=== PATIENT | female | born 1935 | race Caucasian/White ===

== ENCOUNTER 2017-06-07 03:42 | Inpatient (IN) | payer OTHER, MEDICARE ==
[~2017-06-07] VITALS: Ht 162.6 cm; Wt 63.0 kg
[~2017-06-07 03:42] MED LIST: ASPIRIN EC81 M1 PO; DUREZOL5 ML OS; LEVOTHYROXINE100 MC1 PO; NORVASC10 M1 PO; OMEPRAZOLE40 M1 PO; PRAVACHOL40 M1 PO; SIMBRINZA 1%-0.28 ML; TRAVATAN Z5 ML OPH; VESICARE10 MG PO
--- NOTE | 2017-06-07 10:19 | Admission Core Measures ---
Acute Coronary Syndrome (CM) ACS Core Measures Acute Coronary Syndrome Diagnosis No Congestive Heart Failure (NEW) CHF Core Measures Congestive Heart Failure Diagnosis No Cerebrovascular Accident (NEW) CVA Core Measures CVA/TIA Diagnosis No Venous Thromboembolism VTE Core Sonia (View Protocol) VTE Risk Factors Surgery No Mechanical VTE Prophylaxis d/t N/A MechProphylax Ordered No VTE Pharm Prophylaxis d/t NA PharmProphylax ordered Problem List As ranked by this Provider includes Assessment & Plan 1. Unilateral primary osteoarthritis, right knee HOME MEDS Home Med List Amlodipine Besylate (Norvasc) 10 MG TABLET 1 TAB PO DAILY HTN (Reported) Aspirin (Ecotrin*) 81 MG TABLET.DR 1 TAB PO DAILY CARDIAC (Reported) Difluprednate (Durezol) 0.05 % DROPS 1 GTT OS BID GLAUCOMA (Reported) Levothyroxine Sodium 100 MCG TABLET 1 TAB PO DAILY REPLACEMENT (Reported) Omeprazole 40 MG CAPSULE.DR 1 CAP PO DAILY REFLUX (Reported) Pravastatin Sodium (Pravachol) 40 MG TABLET 1 TAB PO DAILY CHOLESTEROL ( Reported) Solifenacin Succinate (Vesicare) 10 MG TABLET 1 TAB PO DAILY BLADDER ( Reported) Travoprost (Travatan Z) 0.004 % DROPS 1 GTT OPH QPM GLAUCOMA (Reported)
[2017-06-07] MEDS ORDERED: MIRALAX17 G1 PO (10:20)
[2017-06-07] MEDS ORDERED: DILAUDID2 M1 PO (10:20)
[2017-06-07] MEDS ORDERED: COLACE100 M1 PO (10:20)
[2017-06-07] MEDS ORDERED: ASPIRIN EC325 M2 PO (10:20)
--- NOTE | 2017-06-07 10:22 | Patient Discharge Instructions ---
Discharge Instructions General Discharge Information You were seen/treated for: Right knee pain related to unilateral primary osteoarthritis You had these procedures: Right total knee replacement Watch for these problems: Increasing pain despite the use of pain medication Increasing redness, warmth or swelling Drainage of any type from incision Inability to bear weight on operative leg Persistent nausea and vomiting Fever greater than 101.5 degrees Do not soak the wound: Yes No bath, but you may shower: Yes Other wound care: Please keep wound clean and dry. No ointments or lotions of any type on or near incision at any time. No exceptions. Your dressing will be changed by your nurse on the second day after your surgery. Daily dry dressing changes are recommended each day thereafter. Do not soak your wound in a bath at any time until otherwise indicated by your surgeon. You may shower, please dry wound immediately after shower with a clean towel. Special Instructions: Aspirin: You are taking this medication to help prevent blood clot formation. Please take with food to protect your stomach lining. Please take as directed. Constipation: Pain medication can cause constipation. Dr. Harper has recommended that you take Colace and miralax each day. You may discontinue this medication if you develop loose stool or diarrhea. If you wish to continue this medication, it is available over the counter. If you are unable to move your bowels after several days, if you are unable to pass gas and are developing bloating, nausea, or vomiting as a result, please contact your doctor. Diet Continue normal diet: Yes Recommended Diet: Regular Activity Full Activity/No Limits: No Activity Self Limited: Yes Pounds, do NOT lift more than: 10 Acute Coronary Syndrome Inclusion Criteria At DC or during hospital stay patient has or had the following: ACS DIAGNOSIS No Discharge Core Measures Meds if any: Prescribed or Continued at Discharge Meds if any: NOT Prescribed or Continued at Discharge Congestive Heart Failure Inclusion Criteria At DC or during hospital stay patient has or had the following: CHF DIAGNOSIS No Discharge Core Measures Meds if any: Prescribed or Continued at Discharge Meds if any: NOT Prescribed or Continued at Discharge Cerebrovascular accident Inclusion Criteria At DC or during hospital stay patient has or had the following: CVA/TIA Diagnosis No Discharge Core Measures Meds if any: Prescribed or Continued at Discharge Meds if any: NOT Prescribed or Continued at Discharge Venous thromboembolism Inclusion Criteria VTE Diagnosis No VTE Type NONE VTE Confirmed by (Test) NONE Discharge Core Measures - Per Current guidelines, there needs to be overlap - treatment for the first 5 days of Warfarin therapy. - If discharged on Warfarin prior to 5 days of - overlap therapy, the patient will need to be - assessed for post discharge needs including - *Post discharge parental anticoagulation - *Warfarin and/or parental anticoagulation education - *Follow up date to check INR post discharge At least 5 days overlap therapy as Inpatient No Meds if any: Prescribed or Continued at Discharge Note: Overlap Therapy is Warfarin and Anticoagulant Meds if any: NOT Prescribed or Continued at Discharge
--- NOTE | 2017-06-07 10:24 | Surgical Discharge Summary ---
Visit Information Visit Dates Admission Date: 06/07/17 Discharge Date: 06/10/17 History of Present Illness Chief Complaint: Right knee pain related to unilateral primary osteoarthritis Surgical History Pertinent Surgical History: non-contributory Review of Systems: See H&P Hospital Course Course Attending Physician: Parmjit Harper MD Primary Care Physician: Unknown Hospital Course: Patient was admitted to the hospital for an elective total joint replacement. The procedure was tolerated well and patient was transferred to a general surgical floor. Diet was advanced and tolerated, and the patient voided spontaneously. The patient was evaluated and treated by physical therapy. At the time of hospital discharge, the vital signs were stable, neurovascular status was intact, and pain was controlled with the use of oral pain medications. Allergies: Coded Allergies: propoxyphene (From DARVON) (PASSED OUT 06/06/17) Disposition Summary Disposition Principal Diagnosis: Right knee unilateral primary osteoarthritis Additional Diagnosis: None Discharge Disposition: SNF Discharge Instructions General Discharge Information Code Status: Full Code Patient's Diet: Regular, advance as tolerated Patient's Activity: WBAT Follow-Up Instructions/Appts: Follow up with Dr. Harper in 6 weeks from date of surgery. Please call his office to arrange and/or confirm this appointment. Medications at Discharge Discharge Medications: Stop taking the following medications: Aspirin (Ecotrin*) 81 MG TABLET. ORAL DAILY Continue taking these medications: Amlodipine Besylate (Norvasc) 10 MG TABLET 1 Tablet ORAL DAILY Brinzolamide/Brimonidine Tart (Simbrinza 1%-0.2% Eye Drops) 1 %-0.2 % DROPS.SUSP Difluprednate (Durezol) 0.05 % DROPS 1 Drop Left Eye TWICE DAILY Travoprost (Travatan Z) 0.004 % DROPS 1 Drop In the eye Every night Pravastatin Sodium (Pravachol) 40 MG TABLET 1 Tablet ORAL DAILY Omeprazole (Omeprazole) 40 MG CAPSULE. 1 Capsule ORAL DAILY Solifenacin Succinate (Vesicare) 10 MG TABLET 1 Tablet ORAL DAILY Levothyroxine Sodium (Levothyroxine Sodium) 100 MCG TABLET 1 Tablet ORAL DAILY Start taking the following new medications: Hydromorphone HCl (Dilaudid) 2 MG TABLET 1-2 Tablet ORAL EVERY 4-6 HOURS NEEDED as needed for PAIN Qty = 36 No Refills Aspirin (Ecotrin*) 325 MG TABLET. 1 Tablet ORAL TWICE DAILY Qty = 60 No Refills Docusate Sodium (Colace) 100 MG CAPSULE 1 Capsule ORAL TWICE DAILY Qty = 14 No Refills Instructions: DISCONTINUE USE IF YOU DEVELOP LOOSE STOOL OR DIARRHEA Polyethylene Glycol 3350 (Miralax) 17 GRAM POWD.PACK 1 Packet ORAL DAILY Qty = 7 No Refills Instructions: dissolve in water, DISCONTINUE USE IF YOU DEVELOP LOOSE STOOL OR DIARRHEA
--- NOTE | 2017-06-07 12:34 | Operative Report ---
Operative/Inv Procedure Report Surgery Date: 06/07/17 Name of Procedure: Right total knee replacement Pre-Operative Diagnosis: Primary right knee DJD Post-Operative Diagnosis: Same Estimated Blood Loss: 50ml to 100ml Surgeon/Mold Machine Operator: Leroy CASTAÑEDA,Parmjit Caputo Anesthesia: block Operative/Procedure Note Note: Description of Procedure: The patient was taken to the operating room and positively identified. After induction of spinal anesthesia and administration of appropriate pre-operative antibiotics, the patient was positioned supine on the operating room table and all bony prominences were well padded. A well-padded pneumatic tourniquet was placed on the right upper thigh. After performing a surgical timeout, the right lower extremity was prepped and draped in the usual sterile fashion. After exsanguination with Esmarch the tourniquet was inflated to 250mm of mercury. A standard medial parapatellar approach was made to the knee. This was carried down through skin and subcutaneous tissue to the level of the fascia. Meticulous hemostasis was maintained with Bovie electrocautery. The extensor mechanism and patellar retinaculum were opened sharply and the patella was everted. The infrapatellar fat was resected in order to improve exposure. Osteophytes were trimmed from the patella and femoral condyles and the patella was re-everted and tucked laterally. A medial release was performed and the cruciate ligaments were resected. The tibia was then subluxed anteriorly. Utilizing the appropriate extra-medullary guide, the proximal tibia was trimmed perpendicular to the long axis of the tibial shaft. Attention was then turned to the femur. After opening the medullary canal, the distal femoral cut was made in 6 degrees of valgus utilizing the appropriate intra-medullary guide. The extension gap was checked and found to be appropriate. The femur was then sized and the remainder of the femoral cuts were made with a size 3 4-in-1 femoral cutting guide. The flexion gap was checked and found to be symmetric and appropriate. The knee was then trialed with a size 3 femoral component, a size 3 tibial component and a size 9 mm polyethylene insert. The patella was trimmed to accept an A 32 patella. This yielded excellent range of motion, stability and patellar tracking. All trial components were removed and the knee was copiously irrigated with sterile saline. All components were cemented into place with Patricia Simplex cement. All the components were of the [place] [employer] knee system of the above stated sizes. The knee was again irrigated after cementation. The extensor mechanism and patellar retinaculum were repaired using interrupted #1 vicryl suture. The skin was re-approximated with 2-0 vicryl and closed with jaquan. A sterile dressing was applied, the tourniquet was deflated, the patient was awakened and taken to the recovery room in satisfactory condition.
[2017-06-07 14:00] VITALS: BP 122/72
--- NOTE | 2017-06-07 15:25 | PN- Orthopedic ---
Subjective Subjective: poc s/p right tka no major cmplaints denies cp, sob, no n+v with diet has been ob with pt Objective Vital Signs and I&Os Intake & Output 06/07 1600 06/07 0806/07 0000 06/06 1600 06/06 0000 Intake Total Output Total Balance Patient 139 lb 140 lb Weight Weight Reported by Patient Measurement Method Physical Exam: cv: rrr lungs: clear abd: soft, +bs ext: drsg dry distal cms intact bilat on-q in place Assessment/Plan Assessment/Plan ortho stable plan cont oob with pt wbat bilat le asa/alps for dvt prophylaxis advance diet as tolerated titrate pain meds snf on Monday - [facility] Core Measures Venous Thromboembolism VTE Risk Factors Surgery No Mechanical VTE Prophylaxis d/t N/A MechProphylax Ordered No VTE Pharm Prophylaxis d/t NA PharmProphylax ordered
[2017-06-07 22:06] VITALS: BP 108/60
[2017-06-08 02:12] VITALS: BP 124/74
[2017-06-08 05:55] VITALS: BP 122/76
[2017-06-08 08:20] LABS: ABSOLUTE BASOPHIL COUNT 0 /CUMM (0.0-0.2); ABSOLUTE EOSINOPHIL COUNT 0 /CUMM (0.0-0.7); ABSOLUTE GRANULOCYTE CT 9.5 /CUMM (1.4-6.5); ABSOLUTE LYMPH COUNT 1.1 /CUMM (1.2-3.4); ABSOLUTE MONOCYTE COUNT 1.4 /CUMM (0.10-0.60); BASOPHIL % 0 % (0.0-2.0); EOSINOPHIL % 0 % (0-5); GRANULOCYTE % 79.1 % (42.2-75.2); HEMATOCRIT 33.9 % (37-47); MEAN CORPUSCULAR HGB 30.6 PG (27.0-31.0); MEAN CORPUSCULAR HGB CONC 33.7 G/DL (33.0-37.0); MEAN CORPUSCULAR VOLUME 90.8 FL (81.0-99.0); MEAN PLATELET VOLUME 8.9 FL (7.4-10.4); PLATELET COUNT 201 /CUMM (130-400); RBC DISTRIBUTION WIDTH 13.9 % (11.5-14.5); RED BLOOD CELL CT 3.74 /CUMM (4.20-5.40)
--- NOTE | 2017-06-08 12:04 | PN- Orthopedic ---
Subjective Subjective: Patient reports postop thigh and knee pain, which is controlled with analgesics. She reports ambulating with PT. She is tolerating reg diet without any nausea or vomiting. She reports voiding and reports passing flatus and in concerned about her bowels because she had to have a bowel disimpaction after her last surgery. She offers no other complaints. Objective Vital Signs and I&Os Vital Signs Date Time Temp Pulse Resp B/P B/P Pulse O2 O2 Flow FiO2 Mean Ox Delivery Rate 06/08 1103 Room Air Room Air 06/08 0828 69 122/76 06/08 0555 97.4 69 18 122/76 93 06/08 0212 97.4 79 18 124/74 95 06/07 2206 97.5 73 18 108/60 96 Room Air 06/07 1400 97.4 70 16 122/72 97 Room Air Room Air Intake & Output 06/08 1600 06/08 0800 06/08 0000 06/07 1600 06/07 0800 06/07 0000 Intake Total Output Total Balance Patient 139 lb Weight Weight Reported by Patient Measurement Method Physical Exam: Gen - awake an alert in NAD Cardiac - S1S2 noted, RRR Lungs - CTAB Ext - R knee dressing with turner wrap in place c/d/i, onQ and ice in place, moves all extremities, motor and sensory intact, alp in place, no calf tenderness B/L Current Medications: Current Medications Sig/Sulema Start time Last Medication Dose Route Stop Time Status Admin Acetaminophen 1,000 MG .STK-MED ONE 06/08 0255 DC IV 06/08 0256 Acetaminophen 1,000 MG Q6H 06/07 1500 DC 06/08 IV 06/08 0901 0828 Acetaminophen 975 MG ONCE 06/07 0000 DC PO 06/07 2359 Amlodipine Besylate 10 MG DAILY 06/08 1000 DC PO Amlodipine Besylate 10 MG DAILY 06/08 1000 AC 06/08 PO 0828 Artificial Tears 2 GTT 5 TIMES A DAY PRN 06/07 1300 AC OPH Aspirin 325 MG BID 06/07 2200 AC 06/08 PO 0828 Cefazolin Sodium 2 GM IQ8 06/07 1600 DC 06/08 N/A 1 UNIT IV 06/08 0029 0010 Cefazolin Sodium 2,000 MG ONCE 06/07 0000 DC IV 06/07 235 Dextrose/Sodium 1,000 ML .[id number] 06/07 1430 DC 06/07 Chloride IV 1437 Docusate Sodium 100 MG BID 06/07 2200 AC 06/08 PO 0828 Hydromorphone HCl 2 MG Q4P PRN 06/07 1430 AC PO Hydromorphone HCl 4 MG Q4P PRN 06/07 1430 AC PO Latanoprost 1 GTT AT BEDTIME 06/07 2200 DC OPH Latanoprost 1 GTT AT BEDTIME 06/07 2200 AC 06/07 OPH 2130 Levothyroxine Sodium 0.1 MG DAILY 06/08 1000 DC PO Levothyroxine Sodium 0.1 MG DAILY AC 06/08 0700 AC 06/08 PO 0556 Morphine Sulfate 2 MG Q2P PRN 06/07 1430 AC IV Non-Formulary 0 0800 06/09 08 AC Medication ANY Non-Formulary 0 0800,1300,1800 06/07 1300 AC Medication ANY Omeprazole 40 MG DAILY AC 06/08 07 DC PO Omeprazole 40 MG DAILY AC 06/08 0700 AC 06/08 PO 0556 Ondansetron HCl 4 MG Q6P PRN 06/07 1430 AC IV Oxybutynin Chloride 5 MG BID 06/07 220 DC PO Oxybutynin Chloride 5 MG BID 06/07 2200 AC 06/08 PO 0828 Oxycodone HCl 10 MG ONCE 06/07 0000 DC PO 06/07 2359 Polyethylene Glycol 17 GM DAILY 06/08 1000 AC 06/08 PO 0828 Pravastatin Sodium 40 MG 1700 06/07 1700 DC PO Pravastatin Sodium 40 MG 1700 06/07 1700 AC 06/07 PO 1634 Promethazine HCl 12.5 MG Q6P PRN 06/07 1430 AC IV 06/14 1014 Ropivacaine 500 ML ONCE ONE 06/07 1115 AC 06/07 ON-Q Ball 1 BAG INJ 06/09 0454 1115 Results Last 48 Hours of Labs: Laboratory Tests 06/08 633 Chemistry Sodium (137 - 145 mmol/L) 139 Potassium (3.5 - 5.1 mmol/L) 3.8 Chloride (98 - 107 mmol/L) 107 Carbon Dioxide (22 - 30 mmol/L) 21 L Anion Gap (5 - 16) 10 BUN (7 - 17 mg/dL) 13 Creatinine (0.5 - 1.0 mg/dL) 0.6 Estimated GFR (>60 ml/min) > 60 BUN/Creatinine Ratio (7 - 25 %) 21.7 Hematology CBC w Diff NO MAN DIFF REQ WBC (4.8 - 10.8 /CUMM) 12.0 H RBC (4.20 - 5.40 /CUMM) 3.74 L Hgb (12.0 - 16.0 G/DL) 11.4 L Hct (37 - 47 %) 33.9 L MCV (81.0 - 99.0 FL) 90.8 MCH (27.0 - 31.0 PG) 30.6 MCHC (33.0 - 37.0 G/DL) 33.7 RDW (11.5 - 14.5 %) 13.9 Plt Count (130 - 400 /CUMM) 201 MPV (7.4 - 10.4 FL) 8.9 Gran % (42.2 - 75.2 %) 79.1 H Lymphocytes % (20.5 - 51.1 %) 8.8 L Monocytes % (1.7 - 9.3 %) 12.1 H Eosinophils % (0 - 5 %) 0 Basophils % (0.0 - 2.0 %) 0 Absolute Granulocytes (1.4 - 6.5 /CUMM) 9.5 H Absolute Lymphocytes (1.2 - 3.4 /CUMM) 1.1 L Absolute Monocytes (0.10 - 0.60 /CUMM) 1.4 H Absolute Eosinophils (0.0 - 0.7 /CUMM) 0 Absolute Basophils (0.0 - 0.2 /CUMM) 0 Assessment/Plan Assessment/Plan 81 F POD 1 s/p right total knee replacement who is recovering well. OOB w/ PT, WBAT Cont reg diet Cont onQ Pain meds, ice prn Home meds on board Bowel regimen on board DVT - alps, asa bid GI ppx on board Encourage IS Anticipate d/c to STR in 2 days Core Measures Venous Thromboembolism VTE Risk Factors Surgery No Mechanical VTE Prophylaxis d/t N/A MechProphylax Ordered No VTE Pharm Prophylaxis d/t NA PharmProphylax ordered
[2017-06-08 13:09] VITALS: BP 114/58
[2017-06-08 17:00] VITALS: BP 112/80
[2017-06-08 22:03] VITALS: BP 100/58
[2017-06-09 01:34] VITALS: BP 100/60
[2017-06-09 06:07] VITALS: BP 124/76
--- NOTE | 2017-06-09 07:46 | PN- Orthopedic ---
Subjective Subjective: POD #2 s/p right TKR. pain resolving. No N/V, F/C, CP/SOB. Working well with PT, awaiting d/c to [facility]. Voiding spontaneously. Objective Vital Signs and I&Os Vital Signs Date Time Temp Pulse Resp B/P B/P Pulse O2 O2 Flow FiO2 Mean Ox Delivery Rate / 0607 98.2 88 20 124/76 95 Room Air / 0134 98.5 76 20 100/60 94 Room Air / 2203 98.2 89 19 100/58 92 Room Air 02/ 1700 98.2 88 19 112/80 91 Room Air 06/08 1309 97.4 79 20 114/58 99 Room Air 06/08 1103 Room Air Room Air 06/08 0828 69 122/76 Intake & Output / 0800 / 0000 06/08 1600 06/08 0800 06/08 0000 06/07 1600 Intake Total 1040 60 Output Total 300 0 Balance 740 60 Intake, IV 40 10 Intake, Oral 1000 50 Number 1 0 Bowel Movements Output, Urine 300 0 Patient 139 lb Weight Weight Reported by Patient Measurement Method Physical Exam: Gen: AAox3 in NAD Cor: S1+S2+ Lungs: CTA poppy Abd: soft, NT, ND, +Bs x4 Ext: right knee dressing removed. Incision C/D/I wtih jaquan. No surrounding erythema or drainage noted. Palpable DP/PT. Dorsiflexion and plantar flexion intact. No calf tenderness or edema. Onq removed. No ALPS on patient overnight. Current Medications: Current Medications Sig/Sulema Start time Last Medication Dose Route Stop Time Status Admin Acetaminophen 1,000 MG Q6H 06/07 1500 DC 02 IV 06/08 0901 0828 Amlodipine Besylate 10 MG DAILY 06/08 1000 DC PO Amlodipine Besylate 10 MG DAILY 06/08 1000 AC 06/08 PO 0828 Artificial Tears 2 GTT 5 TIMES A DAY PRN 06/07 1300 AC OPH Aspirin 325 MG BID 06/070 AC 06/08 PO 2125 Dextrose/Sodium 1,000 ML .[id number] 06/07 1430 DC 06/07 Chloride IV 1437 Docusate Sodium 100 MG BID 06/07 2200 AC 06/08 PO 2125 Hydromorphone HCl 2 MG Q4P PRN 06/07 1430 AC 06/08 PO 1547 Hydromorphone HCl 4 MG Q4P PRN 06/07 1430 AC 06/09 PO 0617 Ketorolac 15 MG ONCE PRN 06/08 2100 AC 06/08 Tromethamine IV 2137 Latanoprost 1 GTT AT BEDTIME 06/07 2200 AC 06/08 OPH 2125 Levothyroxine Sodium 0.1 MG DAILY 06/08 1000 DC PO Levothyroxine Sodium 0.1 MG DAILY AC 06/08 0700 AC 06/09 PO 0616 Morphine Sulfate 15 MG BID 06/09 0006 AC 06/09 PO 0011 Morphine Sulfate 2 MG Q2P PRN 06/07 1430 AC 06/08 IV 1659 Non-Formulary 0 0800 06/09 0800 AC Medication ANY Non-Formulary 0 0800,1300,1800 06/07 1300 AC 06/08 Medication ANY 195 Omeprazole 40 MG DAILY AC 06/08 0700 AC 06/09 PO 0616 Ondansetron HCl 4 MG Q6P PRN 06/07 1430 AC 06/08 IV 2020 Oxybutynin Chloride 5 MG BID 06/07 2200 AC 06/08 PO 2125 Polyethylene Glycol 17 GM DAILY 06/08 1000 AC 06/08 PO 0828 Pravastatin Sodium 40 MG 1700 06/07 1700 AC 06/08 PO 1704 Promethazine HCl 12.5 MG Q6P PRN 06/07 1430 AC IV 06/14 1014 Ropivacaine 500 ML ONCE ONE 06/07 1115 DC 06/07 ON-Q Ball 1 BAG INJ 06/09 0454 1115 Results Last 48 Hours of Labs: Laboratory Tests 06/08 633 Chemistry Sodium (137 - 145 mmol/L) 139 Potassium (3.5 - 5.1 mmol/L) 3.8 Chloride (98 - 107 mmol/L) 107 Carbon Dioxide (22 - 30 mmol/L) 21 L Anion Gap (5 - 16) 10 BUN (7 - 17 mg/dL) 13 Creatinine (0.5 - 1.0 mg/dL) 0.6 Estimated GFR (>60 ml/min) > 60 BUN/Creatinine Ratio (7 - 25 %) 21.7 Hematology CBC w Diff NO MAN DIFF REQ WBC (4.8 - 10.8 /CUMM) 12.0 H RBC (4.20 - 5.40 /CUMM) 3.74 L Hgb (12.0 - 16.0 G/DL) 11.4 L Hct (37 - 47 %) 33.9 L MCV (81.0 - 99.0 FL) 90.8 MCH (27.0 - 31.0 PG) 30.6 MCHC (33.0 - 37.0 G/DL) 33.7 RDW (11.5 - 14.5 %) 13.9 Plt Count (130 - 400 /CUMM) 201 MPV (7.4 - 10.4 FL) 8.9 Gran % (42.2 - 75.2 %) 79.1 H Lymphocytes % (20.5 - 51.1 %) 8.8 L Monocytes % (1.7 - 9.3 %) 12.1 H Eosinophils % (0 - 5 %) 0 Basophils % (0.0 - 2.0 %) 0 Absolute Granulocytes (1.4 - 6.5 /CUMM) 9.5 H Absolute Lymphocytes (1.2 - 3.4 /CUMM) 1.1 L Absolute Monocytes (0.10 - 0.60 /CUMM) 1.4 H Absolute Eosinophils (0.0 - 0.7 /CUMM) 0 Absolute Basophils (0.0 - 0.2 /CUMM) 0 Assessment/Plan Assessment/Plan A: POD #2 s/p right TKR; AVSS Plan: Explained to nursing that ALPS are important post op to decrease risk of DVT. Explained to nursing that there are to be no pillows under ANY total knee. Continue PT/OT. D/C to STR tomorrow. Core Measures Venous Thromboembolism VTE Risk Factors Surgery No Mechanical VTE Prophylaxis d/t N/A MechProphylax Ordered No VTE Pharm Prophylaxis d/t NA PharmProphylax ordered
[2017-06-09 15:01] VITALS: BP 110/60
[2017-06-09 21:46] VITALS: BP 122/78
[2017-06-10 07:10] VITALS: BP 118/74
--- NOTE | 2017-06-10 10:08 | PN- Orthopedic ---
Subjective Subjective: POD#3 S/P RIGHT TKA NO MAJOR ISSUES OVERNIGHT DENEIS CP, SOB, NO N+V WITH DIET AMBULATING WELL WITH PT VOIDING INDEPENDENTLY Objective Vital Signs and I&Os Vital Signs Date Time Temp Pulse Resp B/P B/P Pulse O2 O2 Flow FiO2 Mean Ox Delivery Rate / 0710 97.9 101 18 118/74 95 / 2146 97.9 73 18 122/78 94 Room Air 06/09 1501 98.1 71 18 110/60 98 06/09 1301 98.2 88 20 124/76 Intake & Output / 1600 02 0800 06/10 0000 / 1600 06/09 0800 06/09 0000 Intake Total 100 720 650 584 6809 Output Total 250 300 Balance 100 720 480 50 740 Intake, IV 40 Intake, Oral 100 720 935 078 1535 Number 1 Bowel Movements Output, Urine 250 300 Physical Exam: CV: RRR LUNGS: CLEAR ABD: SOFT, +BS EXT: NO CALF TENDERNESS BILAT BILAT LE CMS INTACT WOUND C/D/I Assessment/Plan Assessment/Plan ORTHO STABLE PLAN SNF LATER TODAY Core Measures Venous Thromboembolism VTE Risk Factors Surgery No Mechanical VTE Prophylaxis d/t N/A MechProphylax Ordered No VTE Pharm Prophylaxis d/t NA PharmProphylax ordered
[2017-06-10 12:51] VITALS: BP 118/74
== END 2017-06-10 14:38 | DRG 470 ==
LOC: SDA 03:42 → ENRESERV 12:28 → ENTRNSPT 13:35 → EDTRNSPT 13:50 → EDTRNSPTSTS 13:50 → 2NB 13:59 → CMPTRNSPT 14:13 → ENPENDDIS 06-10 10:15 → ENTRNSPT 06-10 14:04 → EDTRNSPT 06-10 14:13 → EDTRNSPTSTS 06-10 14:13 → CMPTRNSPT 06-10 14:24 → 2NB 06-10 14:38
PROVIDERS: Nurse Practitioner
PROC: 0SR904A Replacement of Right Hip Joint with Ceramic on Polyethylene Synthetic Substitute, Uncemented, Open Approach (ICD-10-PCS; principal; 2017-06-07)
DX: M16.11 Unilateral primary osteoarthritis, right hip (principal); E03.9 Hypothyroidism, unspecified; I10 Essential (primary) hypertension; F17.210 Nicotine dependence, cigarettes, uncomplicated
CPT/HCPCS: 2NBP; 36415; 82436; 97116-GO; 97161-GP; 97530-GO; C1713; J0131; J0690; J2405; J2550; J2795; J3490; J7042